=== PATIENT | female | born 1975 | race African-American/Black ===

== ENCOUNTER 2021-02-11 04:26 | Inpatient (IN) | payer OTHER ==
[2021-02-10 15:59] VITALS: BMI 25.0
[~2021-02-11 04:26] MED LIST: CEFAZOLIN 2 GM/D5W 2 GM/50 ML ML IVPB ONE; PHENAZOPYRIDINE HCL 100 MG TABLET (FP) PO ONE; ceFAZolin SODIUM 1 GM VIAL IVPB ONE
[2021-02-11] MEDS ORDERED: PHENAZOPYRIDINE HCL 100 MG TABLET (FP) ONE (07:07)
[2021-02-11] MEDS ORDERED: ceFAZolin SODIUM 1 GM VIAL ONE ×2 (07:07→07:28)
[2021-02-11] MEDS ORDERED: BUPIVACAINE LIPOSOME/PF (EXPAREL) 266 MG/20 ML VIAL ONE (07:17)
[2021-02-11] MEDS ORDERED: BUPIVACAINE HCL/PF 0.5% (5MG/ML) 10 ML VIAL ONE (07:17)
[2021-02-11] MEDS ORDERED: ROCURONIUM BROMIDE 50 MG/5 ML SYRINGE ONE (07:27)
[2021-02-11] MEDS ORDERED: PROPOFOL 20 ML ONE (07:27)
[2021-02-11] MEDS ORDERED: LIDOCAINE HCL/PF 2% SDV 5ML VIAL ONE (07:28)
[2021-02-11] MEDS ORDERED: DEXAMETHASONE SOD PHOSPHATE 4 MG/1 ML VIAL ONE (07:28)
[2021-02-11] MEDS ORDERED: MIDAZOLAM HCL 2 MG/2 ML SINGLE DOSE VIAL ONE ×2 (07:59)
[2021-02-11] MEDS ORDERED: ceFAZolin SODIUM 1 GM VIAL IVPB ONE (08:10)
[2021-02-11] MEDS ORDERED: TRANEXAMIC ACID 1000 MG/10 ML VIAL ONE (08:20)
[2021-02-11] MEDS ORDERED: ONDANSETRON 4 MG/2 ML VIAL IVPUSH PRN ×2 (10:21→10:26)
[2021-02-11] MEDS ORDERED: oxyCODONE HCL 5 MG TABLET PO PRN ×4 (10:21→10:26)
[2021-02-11] MEDS ORDERED: BISACODYL 5 MG TABLET.DR (FP) PO PRN (10:21)
[2021-02-11] MEDS ORDERED: ACETAMINOPHEN 1000 MG/100 ML VIAL (NON FORMULARY) IVPB ONE ×3 (10:26→17:00)
[2021-02-11] MEDS ORDERED: ACETAMINOPHEN 325 MG TABLET (FP) PO SCH (10:30)
[2021-02-11] MEDS ORDERED: LACTATED RINGERS SOLUTION 1,000 ML IV SCH (10:30)
[2021-02-11] MEDS ORDERED: morphine CARPU-JECT 2 MG/1 ML DISP.SYRIN IVPUSH PRN (10:33)
[2021-02-11] MEDS ORDERED: oxyCODONE HCL 5 MG TABLET ONE (13:04)
[2021-02-11] MEDS ORDERED: HYDROmorphone HCl 2 MG/ML VIAL ONE (13:11)
[2021-02-11] MEDS ORDERED: HYDROmorphone HCL CARPU-JECT 2 MG/1 ML DISP.SYRIN IVPUSH ONE (13:39)
[2021-02-11] MEDS: SODIUM CHLORIDE 1,000 ML IV SCH (14:05)
[2021-02-11] MEDS ORDERED: ACETAMINOPHEN 1000 MG/100 ML VIAL (NON FORMULARY) IVPB SCH (16:30)
[2021-02-11] MEDS: CEFAZOLIN 1 GM/D5W 1 GM/50 ML BAG IVPB SCH (17:10)
[2021-02-11] MEDS: IBUPROFEN 800 MG/8 ML IJ IVPB SCH (17:43)
[2021-02-11 17:56] LABS: HEMATOCRIT 35.1 % (32.4-45.2); HEMOGLOBIN 11.4 GM/dL (10.7-15.3); MCH 26.8 pg (25.7-33.7); MCHC 32.7 g/dl (32.0-36.0); MEAN CELL VOLUME 82.2 fl (80-96); MEAN PLT VOLUME 8.5 fl (7.5-11.1); PLATELET COUNT 225 K/MM3 (134-434); RBC 4.27 M/mm3 (3.60-5.2); RDW 14.4 % (11.6-15.6); WHITE BLOOD COUNT 7.8 K/mm3 (4.0-10.0)
[2021-02-11 18:28] LABS: CALCIUM 8.5 mg/dL (8.5-10.1)
[2021-02-11 18:32] LABS: CREATININE 0.6 mg/dL (0.55-1.3)
[2021-02-11] MEDS: ACETAMINOPHEN 325 MG TABLET (FP) PO SCH (19:45)
[2021-02-12] MEDS ORDERED: ACETAMINOPHEN 1000 MG/100 ML VIAL (NON FORMULARY) IVPB ONE (00:15)
[2021-02-12] MEDS: SODIUM CHLORIDE 1,000 ML IV SCH ×2 (00:27→10:18)
[2021-02-12] MEDS: CEFAZOLIN 1 GM/D5W 1 GM/50 ML BAG IVPB SCH ×2 (00:39→08:28)
[2021-02-12] MEDS: ACETAMINOPHEN 325 MG TABLET (FP) PO SCH ×4 (01:45→20:38)
[2021-02-12] MEDS: IBUPROFEN 800 MG/8 ML IJ IVPB SCH ×3 (02:41→18:15)
[2021-02-12 08:22] LABS: HEMATOCRIT 31.2 % (32.4-45.2); HEMOGLOBIN 10.1 GM/dL (10.7-15.3); MCH 26.8 pg (25.7-33.7); MCHC 32.3 g/dl (32.0-36.0); MEAN PLT VOLUME 8.7 fl (7.5-11.1); PLATELET COUNT 185 K/MM3 (134-434); RBC 3.76 M/mm3 (3.60-5.2); RDW 14.2 % (11.6-15.6); WHITE BLOOD COUNT 5.7 K/mm3 (4.0-10.0)
[2021-02-12] MEDS: oxyCODONE HCL 5 MG TABLET PO PRN ×3 (08:22→20:37)
[2021-02-12 08:45] LABS: CALCIUM 8.4 mg/dL (8.5-10.1)
[2021-02-12 08:46] LABS: BLOOD UREA NITROGEN 6.3 mg/dL (7-18)
[2021-02-12 08:49] LABS: CREATININE 0.5 mg/dL (0.55-1.3)
[2021-02-12] MEDS: ENOXAPARIN NA (PORCINE) 40 MG/0.4 ML DISP.SYRIN SQ SCH (10:13)
[2021-02-13] MEDS: oxyCODONE HCL 5 MG TABLET PO PRN ×4 (01:51→20:26)
[2021-02-13] MEDS: IBUPROFEN 800 MG/8 ML IJ IVPB SCH ×3 (02:30→18:10)
[2021-02-13] MEDS: ACETAMINOPHEN 325 MG TABLET (FP) PO SCH ×5 (02:57→23:30)
[2021-02-13] MEDS: SIMETHICONE 80 MG TAB.CHEW (FP) PO PRN ×2 (09:22→15:58)
[2021-02-13] MEDS: ENOXAPARIN NA (PORCINE) 40 MG/0.4 ML DISP.SYRIN SQ SCH (09:22)
[2021-02-13] MEDS: DOCUSATE SODIUM 100 MG CAPSULE (FP) PO PRN ×2 (09:22→20:23)
[2021-02-13] MEDS: SODIUM CHLORIDE 1,000 ML IV SCH (11:38)
[2021-02-14] MEDS: IBUPROFEN 800 MG/8 ML IJ IVPB SCH ×2 (02:25→11:38)
[2021-02-14] MEDS: ACETAMINOPHEN 325 MG TABLET (FP) PO SCH ×2 (02:25→08:11)
[2021-02-14] MEDS: DOCUSATE SODIUM 100 MG CAPSULE (FP) PO PRN (08:48)
[2021-02-14] MEDS: SIMETHICONE 80 MG TAB.CHEW (FP) PO PRN (08:48)
[2021-02-14] MEDS: oxyCODONE HCL 5 MG TABLET PO PRN (08:49)
[2021-02-14] MEDS: ENOXAPARIN NA (PORCINE) 40 MG/0.4 ML DISP.SYRIN SQ SCH (11:38)
[2021-02-14 14:02] VITALS: BP 104/55; PULSE 59; TEMP 99.2
[2021-02-14] MEDS: SODIUM CHLORIDE 1,000 ML IV SCH (15:32)
== END 2021-02-14 15:33 | disposition home or self-care (01) | DRG 743 ==
LOC: JASUSAT 04:26 → J2C 10:21 → J6S 14:27
PROVIDERS: ADMIT Obstetrics & Gynecology; ATTEND Obstetrics & Gynecology
PROC: 0UT70ZZ Resection of Bilateral Fallopian Tubes, Open Approach (ICD-10-PCS; 2021-02-11)
PROC: 0UT90ZZ Resection of Uterus, Open Approach (ICD-10-PCS; principal; 2021-02-11 07:30)
DX: D25.9 Leiomyoma of uterus, unspecified (principal); R10.2 Pelvic and perineal pain; N92.0 Excessive and frequent menstruation with regular cycle
CPT/HCPCS: 36415; 80048; 81025; 84703; 85027; 86850; 86900; 86901; 88302-TC; 88307-TC; 94010; 94760; J0131